=== PATIENT | male | born 1960 | race Caucasian/White ===

== ENCOUNTER → 2022-07-10 | Day surgery (SDC) | payer OTHER ==
[~2022-07-10] VITALS: Ht 185.4 cm; Wt 135.2 kg
[~2022-07-10] MED LIST: SYMBICORT 80-10.2 GM INH; XARELTO20 MG PO; ZESTRIL10 MG PO
[2022-07-10 07:42] LABS: ALBUMIN 3.2 g/dL (3.4-5.0); CREATININE 0.67 mg/dL (0.67-1.17); GLOBULIN (CALCULATION) 4.1 g/dL; POTASSIUM 3.7 mmol/L (3.5-5.1); TOTAL PROTEIN 7.3 g/dL (6.4-8.2)
[2022-07-10 07:46] LABS: INR 1.08 (0.9-1.2); PROTHROMBIN TIME 13.7 SECONDS (11.9-13.9); PTT 31.8 SECONDS (24.9-34.6)
== END | disposition home or self-care (01) ==
LOC: FAS 06-27 08:00
PROVIDERS: Student in an Organized Health Care Education/Training Program
DX: Z12.11 Encounter for screening for malignant neoplasm of colon (principal); D12.0 Benign neoplasm of cecum; K57.30 Diverticulosis of large intestine without perforation or abscess without bleeding; K62.1 Rectal polyp; J44.9 Chronic obstructive pulmonary disease, unspecified; Z86.010 Personal history of colon polyps; Z79.01 Long term (current) use of anticoagulants; Z72.0 Tobacco use
CPT/HCPCS: 36415; 80053; 85610; 85730; J2250; J2704; J7120